=== PATIENT | male | born 1960 | race Caucasian/White ===

== ENCOUNTER 2018-01-14 06:06 | Emergency (ER) | payer OTHER ==
--- NOTE | 2018-01-14 07:04 | XR ---
EXAM: XR Left Ribs and AP Chest, 3 or More Views CLINICAL HISTORY: Pain TECHNIQUE: Frontal and oblique views of the left ribs and frontal view of the chest. COMPARISON: No relevant prior studies available. FINDINGS: Lungs: Unremarkable. No consolidation. Pleural space: No pleural effusion or pneumothorax. Heart: Unremarkable. No cardiomegaly. Mediastinum: Unremarkable. Bones/joints: There are minimally displaced left anterior ninth and 10th rib fractures. IMPRESSION: Minimally displaced left anterior ninth and 10th rib fractures. No significant pleural effusion or pneumothorax identified.
[2018-01-14] MEDS ORDERED: HYDROmorphone 1 MG/ML 1 ML SYRINGE IVP STA (07:07)
[2018-01-14] MEDS ORDERED: KETOROLAC 60 MG/2 ML VIAL IM STA (07:07)
--- NOTE | 2018-01-14 07:14 | ED ---
General Adult HPI - General Chief complaint: Back Pain/Injury Stated complaint: FALL Time Seen by Provider: 01/14/18 07:00 Source: patient, RN notes reviewed Mode of arrival: ambulatory Limitations: no limitations - History of Present Illness Initial comments: This a 57-year-old male who comes in complaining of lateral left chest wall pain. Patient states he felt a shower this morning and hit the side of the tub on the lateral left aspect of his chest. Patient has no difficulty breathing but it hurts to palpate. Patient denies any abdominal pain today. Patient denies any nausea vomiting. Patient denies any head trauma or neck trauma. Patient denies any headache or neck pain. Patient denies any numbness weakness. Patient denies any anterior chest pain. Patient denies any back pain. Patient denies any extremity pain. Patient's only complaint is lateral left chest wall pain - Related Data Previous Rx's Medication Instructions Recorded Ibuprofen [Motrin] 600 mg PO Q6HR PRN #20 tab 01/14/18 traMADol HCL [Ultram] 50 mg PO Q6HR PRN 3 Days #10 tab 01/14/18 Allergies Allergy/AdvReac Type Severity Reaction Status Date / Time No Known Allergies Allergy Verified 01/14/18 06:14 Review of Systems ROS Statement: Those systems with pertinent positive or pertinent negative responses have been documented in the HPI. ROS Other: All systems not noted in ROS Statement are negative. Past Medical History Past Medical History: No Reported History Additional Past Medical History / Comment(s): CHRONIC BACK PAIN History of Any Multi-Drug Resistant Organisms: None Reported Past Surgical History: No Surgical Hx Reported Past Psychological History: No Psychological Hx Reported Smoking Status: Never smoker Past Alcohol Use History: None Reported Past Drug Use History: Marijuana General Exam - General Exam Comments Initial Comments: GENERAL: Patient is well-developed and well-nourished. Patient is nontoxic and well- hydrated and is in moderate distress. ENT: Neck is soft and supple. No significant lymphadenopathy is noted. Oropharynx is clear. Moist mucous membranes. Neck has full range of motion without eliciting any pain. EYES: The sclera were anicteric and conjunctiva were pink and moist. Extraocular movements were intact and pupils were equal round and reactive to light. Eyelids were unremarkable. PULMONARY: Unlabored respirations. Good breath sounds bilaterally. No audible rales rhonchi or wheezing was noted. CARDIOVASCULAR: There is a regular rate and rhythm without any murmurs gallops or rubs. Lateral chest wall is tender to palpation particularly at about the ninth and 10th rib. ABDOMEN: I aggressively palpated the abdomen particularly in the area of the spleen he had no pain at this time. SKIN: Skin is clear with no lesions or rashes and otherwise unremarkable. NEUROLOGIC: Patient is alert and oriented x3. Cranial nerves II through XII are grossly intact. Motor and sensory are also intact. Normal speech, volume and content. Symmetrical smile. MUSCULOSKELETAL: Normal extremities with adequate strength and full range of motion. LYMPHATICS: No significant lymphadenopathy is noted PSYCHIATRIC: Normal psychiatric evaluation. Limitations: no limitations Course Vital Signs 01/14/18 06:10 Temperature 97.7 F Pulse Rate 79 Respiratory 16 Rate Blood Pressure 171/99 O2 Sat by Pulse 100 Oximetry Medical Decision Making - Medical Decision Making X-ray shows minimally displaced left ninth and 10th rib fracture Disposition Clinical Impression: Rib fractures Disposition: HOME SELF-CARE Prescriptions: Ibuprofen [Motrin] 600 mg PO Q6HR PRN #20 tab PRN Reason: For pain traMADol HCL [Ultram] 50 mg PO Q6HR PRN 3 Days #10 tab PRN Reason: Pain Is patient prescribed a controlled substance at d/c from ED?: No Referrals: None,Stated [Primary Care Provider] - 1-2 days
[2018-01-14] MEDS ORDERED: HYDROmorphone 1 MG/ML 1 ML SYRINGE IM STA (07:38)
[2018-01-14 07:58] VITALS: BP 152/84; PULSE 68; RESP 18; TEMP 98
== END 2018-01-14 07:55 | disposition home or self-care (01) ==
LOC: EC 06:06
DX: S22.42XA Multiple fractures of ribs, left side, initial encounter for closed fracture (principal); W01.198A Fall on same level from slipping, tripping and stumbling with subsequent striking against other object, initial encounter; Y93.E1 Activity, personal bathing and showering; Y92.009 Unspecified place in unspecified non-institutional (private) residence as the place of occurrence of the external cause
CPT/HCPCS: 71101; 99283; 96372 ×2; J1885; J1170

== ENCOUNTER 2020-03-10 09:50 | Emergency (ER) | payer OTHER ==
[2020-03-10] MEDS ORDERED: BACITRACIN OINT 1 EACH PACKET TOPICAL ONE (10:09)
[2020-03-10] MEDS ORDERED: DIPH,PERTUS(ACELL)TETVAC-LF 0.5 ML VIAL IM ONE (10:09)
--- NOTE | 2020-03-10 10:23 | ED ---
Wound/Laceration HPI - General Chief Complaint: Wound/Laceration Stated Complaint: [facility] - L Arm Lac Time Seen by Provider: 03/10/20 10:02 Source: patient, RN notes reviewed Mode of arrival: ambulatory Limitations: no limitations - History of Present Illness Initial Comments: This a 59-year-old male presents emergency Department chief complaint laceration to his left wrist, forearm region. He states that a band of steel came loose and states that it was coming towards his face when he protected himself with his arm. Patient has a skin tear/laceration to his left wrist unsure when his last tetanus was. He states he has pain along his wrist with movement. No other injuries noted. - Related Data Previous Rx's Medication Instructions Recorded Ibuprofen [Motrin] 600 mg PO Q6HR PRN #20 tab 01/14/18 traMADol HCL [Ultram] 50 mg PO Q6HR PRN 3 Days #10 tab 01/14/18 Allergies Allergy/AdvReac Type Severity Reaction Status Date / Time No Known Allergies Allergy Verified 03/10/20 09:53 Review of Systems ROS Statement: Those systems with pertinent positive or pertinent negative responses have been documented in the HPI. ROS Other: All systems not noted in ROS Statement are negative. Past Medical History Past Medical History: No Reported History Additional Past Medical History / Comment(s): CHRONIC BACK PAIN History of Any Multi-Drug Resistant Organisms: None Reported Past Surgical History: No Surgical Hx Reported Past Psychological History: No Psychological Hx Reported Smoking Status: Never smoker Past Alcohol Use History: None Reported Past Drug Use History: Marijuana General Exam Limitations: no limitations General appearance: alert, in no apparent distress Head exam: Present: atraumatic, normocephalic, normal inspection Eye exam: Present: normal appearance, PERRL, EOMI. Absent: scleral icterus, conjunctival injection, periorbital swelling Neck exam: Present: normal inspection. Absent: tenderness, meningismus, lymphadenopathy Respiratory exam: Present: normal lung sounds bilaterally. Absent: respiratory distress, wheezes, rales, rhonchi, stridor Cardiovascular Exam: Present: regular rate, normal rhythm, normal heart sounds. Absent: systolic murmur, diastolic murmur, rubs, gallop, clicks Extremities exam: Present: other (Left wrist there is tenderness with palpation to the ulnar aspect, there is a superficial 2 cm flap laceration with minimal active bleeding neurovascular intact) Course Vital Signs 03/10/20 03/10/20 09:53 10:32 Temperature 97.8 F Pulse Rate 89 Respiratory 16 Rate Blood Pressure 187/110 141/97 O2 Sat by Pulse 100 Oximetry Medical Decision Making - Medical Decision Making Patient's tetanus is updated, x-rays reviewed no acute fracture. There is no need for closure of the laceration this was cleaned, bacitracin applied and dressing applied. Disposition Clinical Impression: Laceration of left forearm Disposition: HOME SELF-CARE Condition: Stable Instructions (If sedation given, give patient instructions): Laceration (ED) Additional Instructions: Please return to the Emergency Department if symptoms worsen or any other concerns. Is patient prescribed a controlled substance at d/c from ED?: No Referrals: None,Stated [Primary Care Provider] - 1-2 days Time of Disposition: 11:10
--- NOTE | 2020-03-10 10:42 | XR ---
EXAMINATION TYPE: XR forearm LT DATE OF EXAM: 03/10/2020 CLINICAL HISTORY: Contusion injury with pain. TECHNIQUE: Two views of the left forearm are obtained. COMPARISON: None. FINDINGS: There is no acute fracture or dislocation seen in the left radius or ulna. The left elbow and wrist joints appear within normal limits. The overlying soft tissue appears within normal limit s. IMPRESSION: As above.
[2020-03-10 11:40] VITALS: BP 147/83; PULSE 80; RESP 18; TEMP 98.6
== END 2020-03-10 11:40 | disposition home or self-care (01) ==
LOC: EC 09:50
DX: S61.512A Laceration without foreign body of left wrist, initial encounter (principal); S51.812A Laceration without foreign body of left forearm, initial encounter; Z23 Encounter for immunization; W26.8XXA Contact with other sharp object(s), not elsewhere classified, initial encounter; Y92.69 Other specified industrial and construction area as the place of occurrence of the external cause; Y99.0 Civilian activity done for income or pay
CPT/HCPCS: 90471; 90715; 99283